=== PATIENT | female | born 1970 | race Caucasian/White ===

== ENCOUNTER 2020-12-14 19:14 | Inpatient (IN) | payer OTHER, SELFPAY ==
[~2020-12-14] VITALS: Ht 154.9 cm; Wt 72.7 kg
[~2020-12-14 19:14] MED LIST: DOCUSATE SODIUM 100MG CAPSULE PO SCH
[2020-12-14 22:30] VITALS: BP 118/69
[2020-12-14] MEDS ORDERED: ACETAMINOPHEN TAB 650MG DOSE (2X325MG) PO PRN (22:50)
[2020-12-14] MEDS ORDERED: MAALOX 30 ML SUSP *UDC PO PRN (22:50)
[2020-12-14] MEDS ORDERED: MOM 30ML SUSPENSION UDC PO PRN (22:50)
[2020-12-14] MEDS ORDERED: GLUCOSE 4GM CHEW TABLET PO PRN (23:05)
[2020-12-14] MEDS ORDERED: GLUCAGON INJ 1MG VIAL SC PRN (23:05)
[2020-12-14] MEDS ORDERED: DEXTROSE 50% 50 ML SYRINGE IV PRN (23:05)
[2020-12-14 23:10] LABS: HEMATOCRIT 41.2 % (36.0-47.0); HEMOGLOBIN 13.6 g/dl (12.0-15.5); MEAN CORPUSCULAR HEMOGLOBIN 29.4 pg (27.0-33.0); MEAN CORPUSCULAR VOLUME 89.2 fl (80.0-96.0); RED BLOOD COUNT 4.62 10^6/uL (4.00-5.40); WHITE BLOOD COUNT 4.2 10^3/uL (4.0-10.0)
--- NOTE | 2020-12-14 23:12 | HPEPDOC ---
[facility] Medical History & Physical Date of Admission Dec 14, 2020 Date of Service: Dec 14, 2020 Attending Physician: SURESH MURRAY MD History and Physical CHIEF COMPLAINT: [50 y/o female c/o right flank pain x1 week] HISTORY OF PRESENT ILLNESS: [This is a 50 y/o female with a pmh of htn, hld, colon ca, dm2 and anxiety who was directly transferred to us from [facility] after being found to have a 3mm obstructing right sided ureteral stone and hydronephrosis. Patient transferred to us for urological evaluation and intervention. Patient admitted to hospitalist team for medical management. As of my exam of patient, she tells me that she is still experiencing severe right sided flank pain that is radiating to the rlq. Patient states that this is surprising for her as she has had multiple kidney stones in the past but has never had her pain radiate like this before. Patient states that the pain has been increasing over the past week but decided not to come in for evaluation right away d/t having her grandkids for the week and wanting to spend time. Patient states that she had been experiencing nausea and vomiting, but is no longer able to vomit because she has not been eating or drinking so has nothing to bring up. Patient states that she has also been experiencing some transient episodes of subjective fever and chills. Patient, at the time of my exam, denies chest pain, sob, uri type sx, diarrhea, constipation, dysuria, hematuria, pedal edema.] PAST MEDICAL HISTORY: 1. [See HPI PAST SURGICAL HISTORY: 1. [Uterine ablation]. 2. . 3. . SOCIAL HISTORY: Tobacco use:[Current 1/2-1ppd smoker] ETOH: [Denies] Illicit drug use: [Denies] FAMILY HISTORY: Reviewed - none pertinent ALLERGIES: Please see below. REVIEW OF SYSTEMS: CONSTITUTIONAL: [See HPI]. HEENT: [Denies uri sx]. CARDIOVASCULAR: [Denies chest pain, palpitations]. RESPIRATORY: [Denies sob, wheezing]. GASTROINTESTINAL: [See HPI]. GENITOURINARY: [See HPI]. SKIN: [Denies rash]. MUSCULOSKELETAL: [Denies acute joint/back pain]. NEUROLOGICAL: [Denies syncope, paresthesias]. ENDOCRINE: [Hx of DM]. HEMATOLOGIC/LYMPHATIC: [Denies hx of vte]. HOME MEDICATIONS: Please see below. PHYSICAL EXAMINATION: VITAL SIGNS: Please see below. GENERAL APPEARANCE: [Fatigued appearing 50 y/o female. She is resting in bed comfortably and does not appear to be in any acute distress.]. HEENT: [No mass or lesion. EOMI. No scleral icterus. Nares patent. Oral mucosa moist]. CARDIOVASCULAR: [Regular rate, rhythm. No murmurs, rubs, gallops]. LUNGS: [Good air flow b/l. No wheezing, rales, rhonchi.]. ABDOMEN: [Soft, nondistended]. MUSCULOSKELETAL: [No joint deformity noted]. EXTREMITIES: [No pedal edema appreciated. Pulses intact. No overlying skin changes]. NEUROLOGICAL: [Speech clear. A+Ox3. No focal deficits]. PSYCHIATRIC: [Mood and affect appear appropriate.]. LABORATORY DATA: See below. IMAGING: [Direct copy of CT imaging report performed at [facility] not readily available to me. Per report given to day time attending physician and nursing staff, imaging notable for 3mm right sided obstructing stone and hydroneph rosis.] MICROBIOLOGY: Please see below. ASSESSMENT: [This is a 50 y/o female with a pmh of htn, hld, colon ca, dm2 and anxiety who was directly transferred to us from [facility] after being found to have a 3mm obstructing right sided ureteral stone and hydronephrosis. Patient transferred to us for urological evaluation and intervention. Patient admitted to hospitalist team for medical management.]. . PLAN: 1. [Nephrolithiasis - Dr. Claude Garland, urology, has been consulted and will be arranging to take patient for urgent ureteral stenting. Assistance and recommendations greatly appreciated. - Patient not septic at this time - no white count, fever, other sirs criteria - Will begin empiric rocephin d/t hydronephrosis - UA w reflex culture ordered - NPO diet - Toradol, morphine for pain - Zofran for nausea - Will give ivf - Admit to med surg for tx 2. DM - sliding scale coverage - hypoglycemic protocol 3. Thrombocytopenia - patient platelets moderately decreased at 82 - unclear etiology - all other cbc lab values wnl - no need for urgent intervention - monitor for now 4. HTN - continue losartan 5. Depression/anxiety - continue prozac 6. HLD - continue lipitor DVT prophylaxis - mechanical for now pre-op]. Laboratory Data Labs 24H Laboratory Tests 2 12/14/20 23:03: CBC/BMP Home Medications Scheduled Atorvastatin Calcium (Atorvastatin Calcium) 10 Mg Tablet, 10 MG PO QHS Fluoxetine Hcl (Fluoxetine HCl) 20 Mg Capsule, 20 MG PO DAILY Losartan Potassium (Losartan Potassium) 25 Mg Tablet, 25 MG PO QHS Metformin HCl (Metformin HCl) 500 Mg Tablet, 500 MG PO BID Scheduled PRN Zolpidem Tartrate (Zolpidem Tartrate) 5 Mg Tablet, 5 MG PO QHS PRN for SLEEP Allergies Coded Allergies: alcohol (Verified Adverse Reaction, Unknown, 12/14/20) WIPES AND LIQUID BOTHERS HER BREATHING venlafaxine (Verified Adverse Reaction, Unknown, CONFUSION,DISORIENTED, 12/14/20) A-FIB/CHADSVASC A-FIB History Current/History of A-Fib/PAF?: No JUAN GARY Dec 14, 2020 23:12
[2020-12-14] MEDS ORDERED: ONDANSETRON 4MG/2ML VIAL IV PRN (23:20)
[2020-12-14] MEDS ORDERED: MORPHINE 4 MG/ML 1ML VIAL/SYRINGE (J2270) IV PRN (23:20)
[2020-12-14] MEDS ORDERED: NS 1,000 ML IV SCH (23:20)
[2020-12-14] MEDS ORDERED: ZOLP5TAB PO (23:23)
[2020-12-14] MEDS ORDERED: ATOR1TAB19 PO (23:23)
[2020-12-14] MEDS ORDERED: LOSA25TA14 PO (23:23)
[2020-12-14] MEDS ORDERED: FLUO20CA22 PO (23:23)
[2020-12-14] MEDS ORDERED: METF500T13 PO (23:23)
[2020-12-14] MEDS ORDERED: HOME MED LIST COMPLETE! XX SCH (23:25)
[2020-12-14 23:29] LABS: PLATELET COUNT, AUTOMATED 81 10^3/uL (150-450)
[2020-12-14] MEDS ORDERED: zolPIDEM TARTRATE 5 MG TAB PO PRN (23:30)
[2020-12-14 23:40] LABS: ALBUMIN 2.8 GM/DL (3.2-5.2); ALT/SGPT 26 U/L (12-78); BILIRUBIN,TOTAL 0.7 MG/DL (0.2-1.0); BLOOD UREA NITROGEN 11 MG/DL (7-18); CALCIUM LEVEL 7.8 MG/DL (8.5-10.1); CARBON DIOXIDE LEVEL 27 MEQ/L (21-32); CHLORIDE LEVEL 113 MEQ/L (98-107); CK-MB VALUE MASS 1.3 NG/ML (<3.6); CPK CREATINE PHOSPHOKINASE 82 U/L (26-192); CREATININE FOR GFR 0.67 MG/DL (0.55-1.30); GLOMERULAR FILTRATION RATE > 60.0 (>51); GLUCOSE, FASTING 92 MG/DL (70-100); MB/CK RELATIVE INDEX 1.59 (< OR =4); POTASSIUM SERUM 3.6 MEQ/L (3.5-5.1); SODIUM LEVEL 144 MEQ/L (136-145); TOTAL PROTEIN 6.3 GM/DL (6.4-8.2); TROPONIN I < 0.02 NG/ML (< 0.10)
[2020-12-15] VITALS (9 sets, daily range): BP systolic 105–151; BP diastolic 51–98
[2020-12-15] MEDS ORDERED: MORPHINE 4 MG/ML 1ML VIAL/SYRINGE (J2270) IV ONE
[2020-12-15 00:35] LABS: INR 1.03; PARTIAL THROMBOPLASTIN TIME 30.8 SECONDS (25.9-37.0); PROTHROMBIN TIME 13.9 SECONDS (12.7-14.5)
[2020-12-15] MEDS ORDERED: dexameTHASONE 4 MG/ML 1ML VIAL (J1100 PER 1MG) As Ordered ONE (01:05)
[2020-12-15] MEDS ORDERED: propofoL 200 MG/20 ML VIAL As Ordered ONE (01:05)
[2020-12-15] MEDS ORDERED: MIDAZOLAM INJ 2MG/2ML VIAL (J2250 PER 1MG) As Ordered ONE (01:05)
[2020-12-15] MEDS ORDERED: LIDOCAINE 2% 100MG/5ML SDV (FOR ANES.) As Ordered ONE (01:05)
[2020-12-15] MEDS ORDERED: ONDANSETRON 4MG/2ML VIAL As Ordered ONE (01:05)
[2020-12-15] MEDS ORDERED: fentaNYL 250 MCG/5 ML INJECTION (J3010) As Ordered ONE (01:05)
--- NOTE | 2020-12-15 01:45 | SMCUROLCON ---
Urology Consultation General Date of Consultation 12/15/20 Reason For Consultation This patient is seen for right ureteral stone with hydronephrosis and intractable pain amd anorexia. History of Present Illness History and Physical CHIEF COMPLAINT: 50 y/o female c/o right flank pain x1 week HISTORY OF PRESENT ILLNESS: 50 y/o female with a who was directly transferred to us from [facility] after being found to have a 3mm obstructing right sided ureteral stone and hydronephrosis and anorexia. Patient was given hydration, narcotics and Ceftriaxone and transferred to us for urological evaluation and intervention. Patient states h/o multiple kidney stones right >left in the past treated with URS and ESWL, last approx 5 years ago. Patient states that she had been experiencing nausea and vomiting, but is no longer able to vomit because she has not been eating or drinking so has nothing to bring up. Patient states that she has also been experiencing some transient episodes of subjective fever and chills. Pt denies chest pain, sob, uri type sx, diarrhea, constipation, dysuria, hematuria, pedal edema. PAST MEDICAL HISTORY: htn, hld, colon ca, dm2, uterine ablation and anxiety PAST SURGICAL HISTORY: 1. [Uterine ablation]. 2. colectomy for colon cancer withouy chemo or radiation SOCIAL HISTORY: Tobacco use:1/2-1ppd smoker ETOH: Denies Illicit drug use: Denies FAMILY HISTORY: [place] ALLERGIES: not to meds REVIEW OF SYSTEMS: CONSTITUTIONAL: [See HPI]. HEENT: [Denies uri sx]. CARDIOVASCULAR: [Denies chest pain, palpitations]. RESPIRATORY: [Denies sob, wheezing]. GASTROINTESTINAL: [See HPI]. GENITOURINARY: [See HPI]. SKIN: [Denies rash]. MUSCULOSKELETAL: [Denies acute joint/back pain]. NEUROLOGICAL: [Denies syncope, paresthesias]. ENDOCRINE: [Hx of DM]. HEMATOLOGIC/LYMPHATIC: [Denies hx of vte]. HOME MEDICATIONS: Please see below. PHYSICAL EXAMINATION: GENERAL APPEARANCE: cooperative, Aa&O x 3, wincing in pain HEENT: dry tongue CARDIOVASCULAR: Regular LUNGS: clear ABDOMEN: Soft, nondistended + right CVAT EXTREMITIES: No edema NEUROLOGICAL: grossly intact PSYCHIATRIC: appropriate LABORATORY DATA: Platelets 81K IMAGING: [Direct copy of CT imaging report performed at [facility] not readily available to me. Per report given to day time attending physician and nursing staff, imaging notable for 3mm right sided obstructing stone and hydronephrosi s.] ASSESSMENT: 50 y/o female with an obstructing 3mm obstructing right sided ureteral stone and hydronephrosis. Mild thrombocytopenia of unknown origin Plan: cystoscopy and right ureteral stent insertion riks and benefits explained and patient consents Medications Current Medications Current Medications Medications (Trade) Dose Ordered Sig/Etelvina Route PRN Reason Start Time Stop Time Status Last Admin Dose Admin Acetaminophen (Tylenol Tab) 650 mg Q4H PRN PO MILD PAIN or TEMP > 101 12/14/20 22:50 Al Hydrox/Mg Hydrox/Simethicone (Mylanta) 30 ml DAILY PRN PO DYSPEPSIA 12/14/20 22:50 Atorvastatin Calcium (Lipitor) 10 mg QHS PO 12/14/20 21:00 Ceftriaxone Sodium 1 gm/ Dextrose 50 ml @ 100 mls/hr Q24H IV 12/15/20 19:00 Dextrose (Dextrose 50%) 25 ml ASDIRECTED PRN IV SEE LABEL COMMENTS 12/14/20 23:05 12/14/20 23:35 DC Docusate Sodium (Colace) 100 mg BID PO 12/13/20 21:00 Fluoxetine HCl (PROzac) 20 mg DAILY PO 12/15/20 09:00 Glucagon (Glucagon) 1 mg ASDIRECTED PRN SC SEE LABEL COMMENTS 12/14/20 23:05 Glucose (Glucose) 16 GM ASDIRECTED PRN PO SEE LABEL COMMENTS 12/14/20 23:05 Home Med (Home Med List Complete!) ASDIRECTED XX 12/14/20 23:25 12/14/20 23:35 DC Insulin Human Lispro (HumaLOG INSULIN) SEE PROTOCOL TABLE Q6H SC 12/15/20 00:00 Ketorolac Tromethamine (ToRADol) 30 mg Q6H PRN IV MODERATE PAIN (PS 5-7) 12/14/20 23:20 12/19/20 23:19 Losartan Potassium (Cozaar) 25 mg QHS PO 12/14/20 21:00 Magnesium Hydroxide (Milk Of Magnesia) 30 ml DAILY PRN PO CONSTIPATION 12/14/20 22:50 Morphine Sulfate (Morphine Sulfate Inj) 3 mg Q4HP PRN IV SEVERE PAIN (PS 8-10) 12/14/20 23:20 Ondansetron HCl (ZOFRAN INJection) 4 mg Q4HP PRN IV NAUSEA OR VOMITING 12/14/20 23:20 Sodium Chloride 1,000 ml @ 100 mls/hr Q10H IV 12/14/20 23:20 12/15/20 00:10 Zolpidem Tartrate (Ambien) 5 mg QHS PRN PO SLEEP 12/14/20 23:30 Allergies Allergies: Coded Allergies: alcohol (Verified Adverse Reaction, Unknown, 12/14/20) WIPES AND LIQUID BOTHERS HER BREATHING venlafaxine (Verified Adverse Reaction, Unknown, CONFUSION,DISORIENTED, 12/14/20) Vital Signs/I&O Vital Signs Date Time Temp Pulse Resp B/P (MAP) Pulse Ox O2 Delivery O2 Flow Rate FiO2 12/15/20 00:17 18 12/14/20 22:30 98.0 60 118/69 (85) 97 Room Air I&O- Last 24 Hours up to 6 AM 12/15/20 06:00 Intake Total 0 ml Output Total 100 ml Balance -100 ml Laboratory Data 24H Labs Laboratory Tests 2 12/14/20 23:03: Nucleated Red Blood Cells % (auto) 0.0, Immature Platelet Fraction 4.2, Anion Gap 4L, Glomerular Filtration Rate > 60.0, Lactic Acid Level 0.8, Calcium Level 7.8L, Total Bilirubin 0.7, Aspartate Amino Transf (AST/SGOT) 26, Alanine Aminotransferase (ALT/SGPT) 26, Alkaline Phosphatase 67, Total Creatine Kinase 82, Creatine Kinase MB 1.3, Creatine Kinase MB Relative Index 1.59, Troponin I < 0.02, Total Protein 6.3L, Albumin 2.8L, Albumin/Globulin Ratio 0.8L 12/15/20 00:05: Prothrombin Time 13.9, Prothromb Time International Ratio 1.03, Activated Partial Thromboplast Time 30.8 CBC/BMP Laboratory Tests 12/14/20 23:03 FRED GALLEGOS M.D. Dec 15, 2020 01:45
[2020-12-15] MEDS ORDERED: cefTRIAXone SOD 1GM VIAL (J0696 PER 250MG) As Ordered ONE (02:13)
[2020-12-15] MEDS ORDERED: CONRAY-60 60% 50ML VIAL (Q9961) As Ordered ONE (02:15)
[2020-12-15] MEDS ORDERED: ePHEDrine SULFATE 25 MG/5 ML(5MG/ML) SYRINGE As Ordered ONE (02:20)
--- NOTE | 2020-12-15 03:01 | ROOPDOC ---
[facility] Report Of Operation Report of Operation DATE OF PROCEDURE: 12/16/20 PREPROCEDURE DIAGNOSES: right ureteral stone and hydronephrosis. POSTPROCEDURE DIAGNOSES: bilateral nephrolithiasis. PROCEDURE PERFORMED: [cystoscopy and insertion right ureteral stent. SURGEON: Claude Garland MD WEB DESIGNER DEVELOPER: none ANESTHESIA: LMA General . ESTIMATED BLOOD LOSS: Approximately 0 mL. COMPLICATIONS: none. REMARKS: debris from right UO s/p stent]. FINDINGS: above SPECIMENS REMOVED: Urine culture s/p stent PROCEDURE NOTE: 50 yo woman transferred from [facility] with bilateral nephrolithiasis and an obstructing 3 mm right ureteral stent causing hydronephrosis, pain, nausea, vomiting and anorexia. DESCRIPTION OF PROCEDURE: Consent was obtained on the salcedo. Time out was performed in the holding area and in the operating room. Patient was brought in the OR and placed in the supine position. She underwent general anesthesia with an LMA. She received 1 gm Ceftriaxone IV. She the then placed in the dorsal lithotomy position. She had a noticeable rash on her perineum. She was prepped and draped in the usual sterile fashion. A 21 Fr cystoscope was used to introduced into the urethra and bladder which was erythematous. There were no tumors or foreign bodies or stones. The left UO had clear efflux. A 5 Fr Open ended catheter was used to perform a retrograde pyelogram and revealed moderate hydronephrosis and small ureteral stone filling defect. A hybrid wire was inserted into the renal pelvis and 6 Fr multilength stent inserted with good coiled in the renal pelvis and bladder. The was some debris effluxing for the right UO so a urine culture was sent. The bladder was drained and cystoscope removed. The patient was extubated in the OR and transferred to the PACU in stable condition. There were no complications. She will be admitted overnight and discharged home if stable in the morning. Plan will be a f/u CT scan in a few weeks to check stone location and the possible stent removal or ureteroscopy. CLAUDE GARLAND M.D. Dec 15, 2020 03:01
[2020-12-15] MEDS ORDERED: LR 1,000 ML IV SCH (03:05)
[2020-12-15] MEDS ORDERED: KETOROLAC 30 MG/ML 1ML VIAL IV PRN (03:05)
[2020-12-15] MEDS ORDERED: METOCLOPRAMIDE INJ 10MG/2ML VIAL (J2765 PER 1) IV PRN (03:05)
[2020-12-15] MEDS ORDERED: PERCOCET 5MG/325MG TAB PO PRN (03:05)
[2020-12-15] MEDS ORDERED: ONDANSETRON 4MG/2ML VIAL IV PRN (03:05)
[2020-12-15] MEDS: NS 1,000 ML IV SCH ×3 (03:10→19:49)
[2020-12-15] MEDS: fentaNYL 100 MCG/2 ML INJECTION (J3010) IV PRN ×4 (03:18→03:37)
[2020-12-15 03:29] LABS: APPEARANCE, URINE CLEAR (CLEAR); BACTERIA, URINE AUTO NEGATIVE (NEGATIVE); BILIRUBIN, URINE AUTO NEGATIVE (NEGATIVE); BLOOD, URINE BLOOD 3+ (NEGATIVE); COLOR, URINE STRAW (YELLOW); GLUCOSE, URINE (UA) AUTO NEGATIVE (NEGATIVE); KETONE, URINE AUTO TRACE mg/dL (NEGATIVE); LEUKOCYTE ESTERASE, URINE AUTO NEGATIVE (NEGATIVE); MUCUS, URINE SMALL (NEGATIVE); NITRITE, URINE AUTO NEGATIVE (NEGATIVE); PROTEIN, URINE AUTO NEGATIVE (NEGATIVE); RBC, URINE AUTO 64 /HPF (0-3); SPECIFIC GRAVITY URINE AUTO 1.008 (1.002-1.035); SQUAMOUS EPITHELIAL CELL UR AU 0 /HPF (0-6); UROBILINOGEN, URINE AUTO 0.2 mg/dL (0.0-2.0); WBC, URINE AUTO 4 /HPF (0-3)
[2020-12-15] MEDS: ATORVASTATIN 10 MG TAB PO SCH ×2 (06:23→20:20)
[2020-12-15] MEDS: LOSARTAN 25 MG TAB PO SCH ×2 (06:23→20:20)
[2020-12-15] MEDS: DOCUSATE SODIUM 100MG CAPSULE PO SCH ×3 (06:23→20:17)
[2020-12-15] MEDS: KETOROLAC 30 MG/ML 1ML VIAL IV PRN ×3 (06:24→19:49)
[2020-12-15] MEDS: HumaLOG INSULIN (NovoLOG) PER UNIT SC SCH ×4 (07:11→16:54)
[2020-12-15 07:32] LABS: HEMATOCRIT 40.5 % (36.0-47.0); HEMOGLOBIN 13.6 g/dl (12.0-15.5); MEAN CORPUSCULAR HEMOGLOBIN 29.8 pg (27.0-33.0); MEAN CORPUSCULAR HGB CONC 33.6 g/dl (32.0-36.5); MEAN CORPUSCULAR VOLUME 88.6 fl (80.0-96.0); RED BLOOD COUNT 4.57 10^6/uL (4.00-5.40); WHITE BLOOD COUNT 3.9 10^3/uL (4.0-10.0)
[2020-12-15 07:35] LABS: PLATELET COUNT, AUTOMATED 70 10^3/uL (150-450)
[2020-12-15 07:47] LABS: BLOOD UREA NITROGEN 11 MG/DL (7-18); CALCIUM LEVEL 7.3 MG/DL (8.5-10.1); CARBON DIOXIDE LEVEL 23 MEQ/L (21-32); CHLORIDE LEVEL 113 MEQ/L (98-107); CREATININE FOR GFR 0.63 MG/DL (0.55-1.30); GLOMERULAR FILTRATION RATE > 60.0 (>51); GLUCOSE, FASTING 157 MG/DL (70-100); MAGNESIUM LEVEL 1.8 MG/DL (1.8-2.4); POTASSIUM SERUM 3.9 MEQ/L (3.5-5.1); SODIUM LEVEL 141 MEQ/L (136-145)
--- NOTE | 2020-12-15 08:54 | REP ---
INDICATION: STENT PLACEMENT. COMPARISON: None. TECHNIQUE: Intraoperative fluoroscopic imaging. FINDINGS: Images demonstrate mild right hydronephrosis and satisfactory ureteral stent placement. Total fluoroscopic time 8 seconds. IMPRESSION: Status post right ureteral stent placement. <Electronically signed by Torito Fall > 12/15/20 [id number]
[2020-12-15] MEDS: FLUoxetine 20 MG CAP PO SCH (09:33)
[2020-12-15] MEDS: oxyBUTYnin 5 MG TAB PO SCH ×2 (11:30→20:17)
[2020-12-15] MEDS: PHENAZOPYRIDINE 100 MG TAB PO SCH ×3 (12:25→20:17)
[2020-12-15 13:05] LABS: HEMATOCRIT 39.6 % (36.0-47.0); HEMOGLOBIN 13.2 g/dl (12.0-15.5)
--- NOTE | 2020-12-15 13:55 | IPNPDOC ---
Subjective Review oF Systems Chief Complaint The patient is a 50-year-old female POD 1 s/p cystoscopy and right ureteral stent insertion. Events since Last Encounter Pt now 12 hours s/p stent insertion , still having some lower abdominal right sided pain. She also having gross hematuria Her platelet counts is low now down to 70k with IV hydration but no clots Patient states constipation x 1 week with small BM yesterday Objective Physical Examination ABDOMEN EXAM: Normal bowel sounds Female Exam: Nl Ext Genitalia, Normal Cervical Exam, Nl Rectal Sphincter Tone Other physical findings Abd soft nd nt Voided urine to toilet is pink , no clots Vital Signs/I&O Vital Signs Date Time Temp Pulse Resp B/P (MAP) Pulse Ox O2 Delivery O2 Flow Rate FiO2 12/15/20 09:47 18 12/15/20 08:45 97.5 73 130/65 (86) 98 Room Air 12/15/20 03:40 2.0 I&O- Last 24 Hours up to 6 AM 12/15/20 05:59 Intake Total 560 ml Output Total 100 ml Balance 460 ml Laboratory Data Labs 24H Laboratory Tests 2 12/14/20 23:03: Nucleated Red Blood Cells % (auto) 0.0, Immature Platelet Fraction 4.2, Anion Gap 4L, Glomerular Filtration Rate > 60.0, Lactic Acid Level 0.8, Calcium Level 7.8L, Total Bilirubin 0.7, Aspartate Amino Transf (AST/SGOT) 26, Alanine Aminotransferase (ALT/SGPT) 26, Alkaline Phosphatase 67, Total Creatine Kinase 82, Creatine Kinase MB 1.3, Creatine Kinase MB Relative Index 1.59, Troponin I < 0.02, Total Protein 6.3L, Albumin 2.8L, Albumin/Globulin Ratio 0.8L 12/15/20 00:05: Prothrombin Time 13.9, Prothromb Time International Ratio 1.03, Activated Partia l Thromboplast Time 30.8 12/15/20 02:41: Bedside Glucose (Misc Panel) 120H 12/15/20 06:43: Nucleated Red Blood Cells % (auto) 0.0, Anion Gap 5L, Glomerular Filtration Rate > 60.0, Calcium Level 7.3L, Magnesium Level 1.8 12/15/20 06:49: Bedside Glucose (Misc Panel) 163H 12/15/20 11:49: Bedside Glucose (Misc Panel) 152H CBC/BMP Laboratory Tests 12/14/20 23:03 12/15/20 06:43 12/15/20 12:58 FSBS Laboratory Tests Test 12/15/20 02:41 12/15/20 06:49 12/15/20 11:49 Range/Units Bedside Glucose (Misc Panel) 120 163 152 70-105 MG/DL Microbiology Microbiology 12/15/20 Urine Culture, Received Pending Assessment/Plan Date Seen The patient was seen on 12/15/20. Patient Summary 50 yo woman s/p cysto and right ureteral stent with gross hematuria possible UTI and constipation Plan/VTE VTE Prophylaxis Ordered?: No Plan Continue IV hydration 125-150 cc/hr Follow CBC H/H and Plts 70k Continue IV abx and f/u Ucx results from [facility] Call to schedule f/u with [facility] for possible ureteroscopy or stent removal Treat constipation Laxatives/Enema IVF: Continue FRED GALLEGOS M.D. Dec 15, 2020 13:55
[2020-12-15] MEDS ORDERED: cefTRIAXone SOD 1 GM in D5W MINI-BAG PLUS 50 ML IV SCH (19:00)
--- NOTE | 2020-12-15 20:16 | IPNPDOC ---
Text Note Date of Service The patient was seen on 12/15/20. NOTE Hospitalist Progress Note Subjective: Patient did have urological procedure last night with stent placement. This morning she is complaining of some discomfort in the suprapubic region perhaps extending over to the right, which is likely secondary to the placement of the stent, but she also does have some blood in her urine which is concerning for her. She has had multiple stones, stents, lithotripsy in the past, but she has never had hematuria after procedure, therefore she would like to remain in the hospital to be observed for another 24 hours just to be safe. I certainly agree with this plan. Will recheck another H&H at 1300 today, and start her on oxybutynin and Pyridium for symptom control. Objective: General: Awake, alert, oriented 3. Not in any acute distress. HEENT: Head normocephalic, atraumatic, sclera are nonicteric. Hearing is grossly intact to conversation. Respiratory: Clear to auscultation bilaterally with no wheezes, rales, or rhonchi. Cardiovascular: Regular rate and rhythm, with no rubs, gallops, or murmur. Abdomen: Soft, minimally tender in the suprapubic region, nondistended, no hepatosplenomegaly appreciated. Bowel sounds present. Extremities: 2+ pulses in the radial and dorsalis pedis bilaterally. No evidence of clubbing or cyanosis. Assessment: Obstructing ureteral lithiasis status post stent placement Suprapubic abdominal pain Hematuria Hypertension Hyperlipidemia Diabetes mellitus type 2 Anxiety Plan: Recheck H&H at 1300, if it decreased I will plan on contacting urology Start oxybutynin and Pyridium Otherwise, if vitals and labs remain stable, will recheck again clinically tomorrow. VS,Fishbone, I+O VS, Fishbone, I+O Laboratory Tests 12/14/20 23:03 12/15/20 06:43 12/15/20 12:58 Vital Signs Date Time Temp Pulse Resp B/P (MAP) Pulse Ox O2 Delivery O2 Flow Rate FiO2 12/15/20 14:00 98.1 72 16 105/51 (69) 96 Room Air 12/15/20 03:40 2.0 I&O- Last 24 Hours up to 6 AM 12/15/20 06:00 Intake Total 860 ml Output Total 100 ml Balance 760 ml PRABHJOT LEE DO Dec 15, 2020 20:16
[2020-12-15] MEDS ORDERED: HumaLOG INSULIN (NovoLOG) PER UNIT SC SCH (21:00)
[2020-12-16] MEDS: NS 1,000 ML IV SCH (04:06)
[2020-12-16] MEDS: KETOROLAC 30 MG/ML 1ML VIAL IV PRN ×2 (04:07→10:24)
[2020-12-16 06:41] LABS: HEMATOCRIT 39.9 % (36.0-47.0); HEMOGLOBIN 13.1 g/dl (12.0-15.5); MEAN CORPUSCULAR HEMOGLOBIN 29.2 pg (27.0-33.0); MEAN CORPUSCULAR HGB CONC 32.8 g/dl (32.0-36.5); MEAN CORPUSCULAR VOLUME 89.1 fl (80.0-96.0); RED BLOOD COUNT 4.48 10^6/uL (4.00-5.40); WHITE BLOOD COUNT 3.6 10^3/uL (4.0-10.0)
[2020-12-16 06:42] LABS: PLATELET COUNT, AUTOMATED 77 10^3/uL (150-450)
[2020-12-16 07:04] LABS: BLOOD UREA NITROGEN 11 MG/DL (7-18); CALCIUM LEVEL 8.4 MG/DL (8.5-10.1); CARBON DIOXIDE LEVEL 29 MEQ/L (21-32); CHLORIDE LEVEL 113 MEQ/L (98-107); CREATININE FOR GFR 0.61 MG/DL (0.55-1.30); GLOMERULAR FILTRATION RATE > 60.0 (>51); GLUCOSE, FASTING 110 MG/DL (70-100); MAGNESIUM LEVEL 1.9 MG/DL (1.8-2.4); POTASSIUM SERUM 4.5 MEQ/L (3.5-5.1); SODIUM LEVEL 143 MEQ/L (136-145)
[2020-12-16] MEDS ORDERED: PHEN1TAB73 PO (07:51)
[2020-12-16] MEDS ORDERED: COLA100C5 PO (07:51)
[2020-12-16] MEDS ORDERED: ACET1TAB55 PO (07:51)
[2020-12-16] MEDS ORDERED: CIPR-249 PO (07:51)
[2020-12-16] MEDS ORDERED: OXYB5TAB10 PO (07:51)
--- NOTE | 2020-12-16 07:58 | DS.PDOC ---
Discharge Summary General Date of Admission Dec 14, 2020 at 22:30 Date of Discharge 12/16/2020 Discharge Summary PRIMARY CARE PHYSICIAN: PCP is in [place], [place] ATTENDING AT TIME OF DISCHARGE: Dr. Prabhjot Lee, DO DISCHARGE DIAGNOS(E)S: Obstructing ureteral lithiasis status post stent placement Flank & Suprapubic abdominal pain Hematuria Mild thrombocytopenia Constipation Hypertension Hyperlipidemia Diabetes mellitus type 2 Anxiety HPI & HOSPITAL COURSE: Patient presented to [facility] and was found to have a 3 mm obstructing right-sided ureteral stone and hydronephrosis. She was transferred to [facility] for urological evaluation and intervention, and admitted to the hospitalist team for medical management. She was brought to the OR where a ureteral stent was placed. The following day she did have some mild thrombocytopenia and gross hematuria along with suprapubic pain that was extending up into the right side. She was started on oxybutynin and Pyridium which seems to have helped alleviate some of the discomfort. On evaluation today she reports that she still does have some mild discomfort in the area, but is feeling significantly better. Her H&H was checked multiple times over the past 36 hours and has remained stable. Vitals continue to be stable. And although she still does have some mild thrombocytopenia her platelets are improved today from yesterday. She was empirically treated with Rocephin. I called the [facility] this morning and her urine culture results are still pending. She will be sent home empirically with ciprofloxacin 500 mg p.o. twice daily x14 days. PHYSICAL EXAMINATION ON DISCHARGE: GENERAL: Awake, alert, oriented x3. She is in no acute distress. CARDIOVASCULAR EXAMINATION: Regular rate and rhythm, with no rubs, gallops, or murmur. RESPIRATORY EXAMINATION: Clear to auscultation bilaterally with no wheezes, rales, or rhonchi. ABDOMINAL EXAMINATION: Soft, nontender, nondistended. Bowel sounds present. EXTREMITIES: No clubbing or edema noted. 2+ pulses in the radial bilaterally. DISPOSITION: Home DISCHARGE INSTRUCTIONS: Follow-up with both primary care and [facility] urology clinic within 7-10 days. Activity as tolerated. Diet as tolerated. If symptoms return, or if you experience worsening of your symptoms, please call your doctor or return to the emergency department. ITEMS THAT NEED OUTPATIENT FOLLOWUP: She will need urological follow-up for stent retrieval, and if she does not pass the stone perhaps lithotripsy or stone removal. Vital Signs/I&Os Vital Signs Date Time Temp Pulse Resp B/P (MAP) Pulse Ox O2 Delivery O2 Flow Rate FiO2 12/16/20 06:00 98.1 55 18 99 Room Air 12/15/20 20:20 129/69 12/15/20 03:40 2.0 I&O- Last 24 Hours up to 6 AM 12/16/20 06:00 Intake Total 2700 ml Output Total 500 ml Balance 2200 ml Laboratory Data Labs 24H Laboratory Tests 2 12/15/20 11:49: Bedside Glucose (Misc Panel) 152H 12/15/20 16:37: Bedside Glucose (Misc Panel) 99 12/15/20 20:13: Bedside Glucose (Misc Panel) 148H 12/16/20 05:59: Nucleated Red Blood Cells % (auto) 0.0, Immature Platelet Fraction 4.8, Anion Gap 1L, Glomerular Filtration Rate > 60.0, Calcium Level 8.4#L, Magnesium Level 1.9 CBC/BMP Laboratory Tests 12/15/20 12:58 12/16/20 05:59 FSBS Laboratory Tests Test 12/15/20 11:49 12/15/20 16:37 12/15/20 20:13 Range/Units Bedside Glucose (Misc Panel) 152 99 148 70-105 MG/DL Microbiology Microbiology 12/15/20 Urine Culture, Received Pending Discharge Medications Scheduled Atorvastatin Calcium (Atorvastatin Calcium) 10 Mg Tablet, 10 MG PO QHS, (Reported) Ciprofloxacin HCl (Cipro) 500 Mg Tablet, 500 MG PO BID Docusate Sodium (Colace) 100 Mg Capsule, 100 MG PO BID Fluoxetine Hcl (Fluoxetine HCl) 20 Mg Capsule, 20 MG PO DAILY, (Reported) Losartan Potassium (Losartan Potassium) 25 Mg Tablet, 25 MG PO QHS, (Reported) Metformin HCl (Metformin HCl) 500 Mg Tablet, 500 MG PO BID, (Reported) Oxybutynin Chloride (Oxybutynin Chloride) 5 Mg Tablet, 5 MG PO BID Phenazopyridine HCl (Phenazopyridine HCl) 100 Mg Tablet, 100 MG PO TID Scheduled PRN Acetaminophen (Acetaminophen) 325 Mg Tablet, 650 MG PO Q4H PRN for MILD PAIN or TEMP > 101 Zolpidem Tartrate (Zolpidem Tartrate) 5 Mg Tablet, 5 MG PO QHS PRN for SLEEP, (Reported) Allergies Coded Allergies: alcohol (Verified Adverse Reaction, Unknown, 12/14/20) WIPES AND LIQUID BOTHERS HER BREATHING venlafaxine (Verified Adverse Reaction, Unknown, CONFUSION,DISORIENTED, 12/14/20) PRABHJOT LEE DO Dec 16, 2020 07:58
[2020-12-16] MEDS: HumaLOG INSULIN (NovoLOG) PER UNIT SC SCH (08:40)
[2020-12-16] MEDS: FLUoxetine 20 MG CAP PO SCH (08:40)
[2020-12-16] MEDS: DOCUSATE SODIUM 100MG CAPSULE PO SCH (08:40)
[2020-12-16] MEDS: oxyBUTYnin 5 MG TAB PO SCH (08:41)
[2020-12-16] MEDS: PHENAZOPYRIDINE 100 MG TAB PO SCH (08:41)
== END 2020-12-16 12:50 | disposition home or self-care (01) | DRG 465 ==
LOC: M MS5PR 22:30
PROVIDERS: ADMIT Family Medicine; ATTEND Neuromusculoskeletal Medicine & OMM
PROC: 0T768DZ Dilation of Right Ureter with Intraluminal Device, Via Natural or Artificial Opening Endoscopic (ICD-10-PCS; principal; 2020-12-15 02:00)
DX: N13.2 Hydronephrosis with renal and ureteral calculous obstruction (principal); D69.6 Thrombocytopenia, unspecified; E11.9 Type 2 diabetes mellitus without complications; E78.5 Hyperlipidemia, unspecified; K59.00 Constipation, unspecified; F41.9 Anxiety disorder, unspecified; R31.9 Hematuria, unspecified; I10 Essential (primary) hypertension; Z79.899 Other long term (current) drug therapy; Z88.8 Allergy status to other drugs, medicaments and biological substances